=== PATIENT | female | born 1970 | race Caucasian/White ===

== ENCOUNTER 2016-11-24 12:08 | Emergency (ER) | payer BC ==
[~2016-11-24] VITALS: Ht 167.6 cm; Wt 63.5 kg
[~2016-11-24 12:08] MED LIST: FAMO-119 PO; PRD20T PO; TRAM-42 PO
[2016-11-24] MEDS ORDERED: LIDOCAINE PF 1% 5 ML (XYLOCAINE) AMP ONE (13:26)
[2016-11-24] MEDS ORDERED: AMOX-358 PO (13:30)
[2016-11-24] MEDS ORDERED: TRAM-42 PO (13:30)
[2016-11-24] MEDS ORDERED: cefTRIAXone 1 GM (ROCEPHIN) VIAL IM ONE (13:30)
--- NOTE | 2016-11-24 13:30 | ED EENT ---
History of Present Illness General Chief Complaint: Dental Problems/Pain Stated Complaint: R SIDE FACIAL SWELLING Nursing Triage Note: PT REPORTS DENTAL PAIN X 2 DAYS WITH SWELLING SINCE THIS AM. SHE REPORTS SHE IS TO HAVE ALL HER TEETH PULLED TOMORROW. Source: patient Exam Limitations: no limitations History of Present Illness Time seen by provider: 13:27 Initial Comments To ER with right lower jaw pain and swelling since this morning. She states that she is scheduled to have all of her teeth pulled tomorrow and she would like a shot of some long-acting antibiotics because she has no david to fill oral antibiotics. Timing/Duration: abrupt Severity: moderate Location: dental Associated Symptoms: denies symptoms Allergies and Home Medications Allergies Coded Allergies: No Known Drug Allergies (Unverified , 05/27/15) Home Medications Amoxicillin/Potassium Clav 1 Each Tablet, 1 EACH PO BID, #14 Prescribed by: CHASE OLEA on 11/24/16 1330 Famotidine 20 Mg Tablet, 20 MG PO BID, #20 Ref 0 Prescribed by: ASHER HAMM on 11/27/152111 Prednisone 20 Mg Tab, 40 MG PO DAILY, #8 Ref 0 Prescribed by: ASHER HAMM on 11/27/152111 Tramadol HCl 50 Mg Tablet, 50 MG PO Q6H, #10 Prescribed by: CHASE OLEA on 11/24/16 1330 Review of Systems Constitutional: see HPI Eyes: No Symptoms Reported Ears: No Symptoms Reported Nose: no symptoms reported Mouth: see HPI Throat: no symptoms reported Respiratory: no symptoms reported Cardiovascular: no symptoms reported Musculoskeletal: no symptoms reported Past Jlgwwes-Jxloyh-Paytgb Hx Patient Social History Alcohol Use: Denies Use Recreational Drug Use: No Smoking Status: Current Everyday Smoker Type Used: Cigarettes 2nd Hand Smoke Exposure: No Recent Foreign Travel: No Contact w/Someone Who Travel: No Recent Infectious Disease Expo: No Recent Hopitalizations: No Immunizations Up To Date Tetanus Booster (TDap): Less than 5yrs Seasonal Allergies Seasonal Allergies: No Surgeries HX Surgeries: Yes Surgeries: Section, Gallbladder, Tubal Ligation Respiratory Hx Respiratory Disorders: No Cardiovascular Hx Cardiac Disorders: No Neurological Hx Neurological Disorders: No Reproductive System Hx Reproductive Disorders: Yes 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 Genitourinary Hx Genitourinary Disorders: No Gastrointestinal Hx Gastrointestinal Disorders: No Musculoskeletal Hx Musculoskeletal Disorders: No Endocrine Hx Endocrine Disorders: No HEENT HX ENT Disorders: No Cancer Hx Cancer: No Psychosocial Hx Psychiatric Problems: No Integumentary HX Skin/Integumentary Disorder: No Blood Transfusions Hx Blood Disorders: No Adverse Reaction to a Blood Tr: No Family Medical History Significant Family History: No Pertinent Family Hx Physical Exam Vital Signs Vital Sign - Last 12Hours 11/24/16 12:56 Temp 98.2 Pulse 75 Resp 16 B/P (MAP) 148/92 Pulse Ox 99 O2 Delivery Room Air General Appearance: WD/WN, no apparent distress Eyes: bilateral eye EOMI, bilateral eye PERRL, bilateral eye normal inspection Ears: bilateral ear TM normal, bilateral ear auricle normal, bilateral ear canal normal Mouth/Throat: other (there is swelling to the right side of the mandible. There is no fluctuance to the buccal mucosa to suggest drainable abscess.) Neck: non-tender, full range of motion Respiratory: no respiratory distress, no accessory muscle use Gastrointestinal: normal bowel sounds, non tender, soft Neurologic/Psychiatric: alert, normal mood/affect, oriented x 3 Skin: normal color, warm/dry Progress/Results/Core Measures Results/Orders My Orders Orders - CHASE OLEA APRN Ceftriaxone Injection (Rocephin Injectio (11/24/16 13:30) Tramadol Tablet (Ultram Tablet) (11/24/16 13:30) Vital Signs/I&O Vital Sign - Last 12Hours 11/24/16 12:56 Temp 98.2 Pulse 75 Resp 16 B/P (MAP) 148/92 Pulse Ox 99 O2 Delivery Room Air Blood Pressure Mean: 110 Departure Impression Impression: Primary Impression: Dental abscess Disposition: 01 HOME, SELF-CARE Condition: Stable Departure-Patient Inst. Decision time for Depature: 13:29 Referrals: [facility] (PCP/Family) Primary Care Physician Patient Instructions: Tooth Abscess (DC) Add. Discharge Instructions: 1. Follow-up with her dentist tomorrow as scheduled 2. Return to ER for any concerns 3. All discharge instructions reviewed with patient and/or family. Voiced understanding. Scripts Tramadol HCl (Ultram) 50 Mg Tablet 50 MG PO Q6H, #10 TAB Prov: CHASE OLEA APRN 11/24/16 Amoxicillin/Potassium Clav (Augmentin 875-125 Tablet) 1 Each Tablet 1 EACH PO BID, #14 TAB Prov: CHASE OLEA APRN 11/24/16 Images Mouth/Nose 1 - Swelling, Tenderness CHASE OLEA APRN Nov 24, 2016 13:30
[2016-11-24 13:41] VITALS: BP 148/92
--- OUTSIDE RECORDS SUMMARY | 2016-11-25 18:32 | XMS REPORT ---
Author Author ESDRAS PETIT [facility] eClinicalWorks Address Unknown Phone Unavailable Care Team Providers Care Jira Developer Name Role Phone ESDRAS PETIT CP Unavailable Allergies, Adverse Reactions, Alerts Substance Reaction Event Type N.K.D.A. Info Not Available Non Drug Allergy Problems Problem Type Condition Code Onset Dates Condition Status Assessment Upper respiratory tract infection, unspecified type J06.9 Active Problem Need for prophylactic vaccination and inoculation, Influenza V04.81 Active Problem Other and unspecified hyperlipidemia 272.4 Active Problem Abdominal pain, unspecified site 789.00 Active Problem Abnormal weight gain 783.1 Active Problem Other specified symptom associated with female genital organs 625.8 Active Problem Routine gynecological examination V72.31 Active Problem Unspecified breast screening V76.10 Active Problem Mastodynia 611.71 Active Problem Counseling on substance use and abuse V65.42 Active Medications Medication Code System Code Instructions Start Date End Date Status Dosage Azithromycin [facility] [address]-34 250 MG Orally Once a day Mar 17, 2016 Mar 22, 2016 2 tablets on the first day, then 1 tablet daily for 4 days Procedures Procedure Coding System Code Date Office Visit, Est Pt., Level 3 CPT-4 79826 Mar 17, 2016 Vital Signs Date/Time: Mar 17, 2016 Cardiac Monitoring Heart Rate 84 bpm Weight 133.4 lbs Height 66 in BMI 21.53 Index Blood Pressure Diastolic 66 mmHg Blood Pressure Systolic 100 mmHg Results No Known Results Summary Purpose eClinicalWorks Submission
== END 2016-11-24 13:41 | disposition home or self-care (01) ==
LOC: EDUNIT# 12:08 → ER 12:09
DX: K04.7 Periapical abscess without sinus (principal); F17.210 Nicotine dependence, cigarettes, uncomplicated
CPT/HCPCS: 96372; 99282

== ENCOUNTER → 2017-11-18 | Outpatient (CLI) | payer BC ==
[~2017-11-18] MED LIST changes: +AMOX-358 PO
--- NOTE | 2017-11-18 12:53 | Diagnostic Imaging Report ---
INDICATION: Routine screening. COMPARISON: 04/26/2013. TECHNIQUE: 2D and 3D bilateral screening mammography was performed with CAD. FINDINGS: Both breasts remain heterogeneously dense, limiting the sensitivity of mammography. The parenchymal pattern appears stable. No mass or malignant appearing microcalcifications are seen. The axillae are unremarkable. IMPRESSION: No mammographic features suspicious for malignancy are identified. ACR BI-RADS Category 1: Negative. Result letter will be mailed to the patient. Note: At least 10% of breast cancer is not imaged by mammography. Dictated by: Dictated on workstation # [id number]
== END ==
LOC: RAD 07:33
PROVIDERS: ATTEND Nurse Practitioner Primary Care
DX: Z12.31 Encounter for screening mammogram for malignant neoplasm of breast (principal)
CPT/HCPCS: 77067

== ENCOUNTER → 2019-06-04 | Outpatient (CLI) | payer BC ==
--- NOTE | 2019-06-04 16:08 | Diagnostic Imaging Report ---
INDICATION: Routine screening. COMPARISON: Comparison is made with prior mammograms from 11/18/2017 and 04/26/2013. TECHNIQUE: 2-D and 3-D bilateral screening mammography was performed. The current study was also evaluated with a Computer Aided Detection (CAD) system. 3-D tomosynthesis was also performed and reviewed. FINDINGS: Both breasts remain heterogeneously dense, limiting the sensitivity of mammography. No dominant mass or malignant-appearing microcalcifications are seen. Axillae are unremarkable. IMPRESSION: No mammographic features suspicious for malignancy are identified. ACR BI-RADS Category 1: Negative. Result letter will be mailed to the patient. Note: At least 10% of breast cancer is not imaged by mammography. Dictated by: Dictated on workstation # [id number]
== END ==
LOC: RAD 11:32
PROVIDERS: ATTEND Nurse Practitioner Primary Care
DX: Z12.31 Encounter for screening mammogram for malignant neoplasm of breast (principal)
CPT/HCPCS: 77067

== ENCOUNTER 2020-01-10 20:35 | Emergency (ER) | payer SELFPAY ==
[~2020-01-10] VITALS: Ht 167 cm; Wt 63.6 kg
--- NOTE | 2020-01-10 21:28 | ED Lower Extremity ---
General Chief Complaint: Lower Extremity Stated Complaint: R ANKLE PAIN Source: patient Exam Limitations: no limitations (STACEY RAY STUDENT) History of Present Illness Date Seen by Provider: Jan 10, 2020 Time Seen by Provider: 21:10 Initial Comments Jet Garcia is a 49 year old female seen today due to ankle pain. She reports stepping off of a curb and everting her R ankle. She reports hearing a pop. Many years ago she had a similar injury to her R ankle, reports no treatment was needed at that time. She was not able to bear weight initially, but was able to walk into the ED as long as she bore most of her weight on her left leg. Reports pain in her R lateral ankle, with shooting pains when she bears weight along the R ankle and top of her foot. Denies any numbness or tingling. Onset: this afternoon Severity: mild Pain/Injury Location: right ankle Method of Injury: twisted Modifying Factors: Improves With Other (wrapped ankle) (STACEY RAY STUDENT) Allergies and Home Medications Allergies Coded Allergies: No Known Drug Allergies (Unverified , 05/27/15) Home Medications Amoxicillin/Potassium Clav 1 Each Tablet, 1 EACH PO BID Prescribed by: CHASE OLEA on 11/24/16 1330 Famotidine 20 Mg Tablet, 20 MG PO BID Prescribed by: ASHER HAMM on 11/27/152111 Hydrocodone/Acetaminophen 1 Each Tablet, 1 EACH PO Q6H PRN for PAIN-BREAKTHROUGH Prescribed by: TENZIN OJEDA on 01/10/202153 Prednisone 20 Mg Tab, 40 MG PO DAILY Prescribed by: ASHER HAMM on 11/27/152111 Tramadol HCl 50 Mg Tablet, 50 MG PO Q6H Prescribed by: CHASE OLEA on 11/24/16 1330 Patient Home Medication List Home Medication List Reviewed: Yes (TENZIN OJEDA) Review of Systems Constitutional: No chills, No fever EENTM: No throat pain Respiratory: No cough, No short of breath Cardiovascular: No chest pain, No palpitations Gastrointestinal: abdominal pain (attributes to endometriosis); No nausea, No vomiting Genitourinary: No dysuria, No frequency (STACEY RAY STUDENT) Skin: No change in color, No change in hair/nails (TENZIN OJEDA) All Other Systems Reviewed Negative Unless Noted: Yes (TENZIN OJEDA) Past Aznzozt-Cgwgkp-Weqfqr Hx Patient Social History Alcohol Use: Occasionally Uses Recreational Drug Use: No Smoking Status: Current Everyday Smoker (1/2 ppd) Type Used: Cigarettes 2nd Hand Smoke Exposure: No Recent Foreign Travel: No Contact w/Someone Who Travel: No Recent Hopitalizations: No (STACEY RAY STUDENT) Immunizations Up To Date Tetanus Booster (TDap): Less than 5yrs (STACEY RAY) Seasonal Allergies Seasonal Allergies: No (STACEY RAY) Past Medical History Surgeries: Yes Section, Gallbladder, Tubal Ligation Respiratory: No Cardiac: No Neurological: No Reproductive Disorders: Yes [employer]BER [employer]GR[employer] History: Tubal Ligation Gastrointestinal: No Musculoskeletal: No Endocrine: No Cancer: No Psychosocial: No Integumentary: No Blood Disorders: No Adverse Reaction/Blood Tranf: No (STACEY RAY STUDENT) Family Medical History No Pertinent Family Hx (STACEY RAY) Physical Exam Vital Signs Vital Signs - First Documented 01/10/20 21:02 Temp 36.8 Pulse 71 Resp 18 B/P (MAP) 100/71 (81) Pulse Ox 98 O2 Delivery Room Air (TENZIN OJEDA) Vital Signs Capillary Refill : (STACEY RAY STUDENT) Height, Weight, BMI Height: 5'6" Weight: 140lbs. oz. 63.209782kp; 22.27 BMI Method:Stated General Appearance: WD/WN, no apparent distress Neck: non-tender, full range of motion, supple, normal inspection Cardiovascular: normal peripheral pulses, regular rate, rhythm, no edema, no JVD, no murmur Respiratory: lungs clear, normal breath sounds, no respiratory distress, no accessory muscle use Ankles: right ankle limited range of motion, right ankle pain (lateral malleolus), right ankle swelling (lateral malleolus) Feet: right foot non-tender, right foot no evidence of injury Neurologic/Tendon: normal sensation, responds to pain Neurologic/Psychiatric: alert, normal mood/affect, oriented x 3 Skin: normal color, warm/dry (STACEY RAY STUDENT) Cardiovascular: normal peripheral pulses (right dorsal pedal pulse 2+ out of 4. Symmetric to left) (TENZIN OJEDA) Progress/Results/Core Measures Results/Orders My Orders Orders - TENZIN OJEDA Ankle, Right, 3 Views (01/10/20 21:23) Rx-Hydrocodone/Apap 5-325 Mg (Rx-Vicodin (01/10/20 21:45) (TENZIN OJEDA) Vital Signs/I&O 01/10/20 01/10/20 21:02 22:02 Temp 36.8 36.8 Pulse 71 68 Resp 18 18 B/P (MAP) 100/71 (81) 110/81 (81) Pulse Ox 98 98 O2 Delivery Room Air Room Air (TENZIN OJEDA) Progress Progress Note : Progress Note [place] ankle rules cannot rule out fracture, no evidence of injury to navicular or fifth metatarsal, ordered ankle X-ray, which revealed a distal fibula fracture. Recommend R ankle boot and crutches, as well as RICE and NSAIDs as needed. (STACEY RAY MED STUDENT) Progress Note : Progress Note Put her in a boot and give her some crutches with and follow-up with Dr. Guajardo. Rice therapy. Take-home pack of hydrocodone. I attest that I saw this patient alongside the medical student and agree with his documented history, physical exam and review of systems except as otherwise noted. (TENZIN OJEDA) Diagnostic Imaging Diagonstic Imaging: Xray Plain Films/CT/US/NM/MRI: ankle (right) Comments [facility], [place] NAME: JET GARCIA [facility] REC#: [id number] PT STATUS: DEP ER : 1970 PHYSICIAN: TENZIN OJEDA MD ADMIT DATE: 01/10/20/ER Draft Date of Exam:01/10/20 ANKLE, RIGHT, 3 VIEWS INDICATION: Right ankle injury COMPARISON: None. FINDINGS: Three views of the right ankle demonstrate a nondisplaced transverse fracture at the tip of the fibula. The ankle mortise, medial malleolus and visualized tarsal bones are unremarkable IMPRESSION: Distal fibula fracture. Dictated on workstation # [id number] Dict: 01/10/20 2148 Trans: 01/10/203 [facility] [id number] Interpreted by: JULIO C WILSON Electronically signed by: Reviewed: Reviewed by Me (TENZIN OJEDA) Departure Impression Primary Impression: Closed fibular fracture Qualified Codes: S82.831A - Other fracture of upper and lower end of right fibula, initial encounter for closed fracture Disposition: HOME, SELF-CARE Condition: Stable Departure-Patient Inst. Decision time for Depature: 21:54 (TENZIN OJEDA) Referrals: TRACE SALAS APRN (PCP) Primary Care Physician ELVER GUAJARDO MD Patient Instructions: Fibula Fracture (DC) Add. Discharge Instructions: Please wear your boot and use crutches to keep your right ankle stable and to decrease the amount of weight. You can take off the boot to shower and sleep, but wear TERRI bandage for compression. Follow up with orthopedic surgery. Dr. Guajardo, in 1 week. Ibuprofen maximum 800 mg every 8 hours, Tylenol 650 mg every 8 hours. Hydrocodone for breakthrough pain, 1 tablet every 6 hours. Rest, ice, compression with TERRI bandage, and elevate above the level of your heart when possible. For the first 2-3 days use ice 20 minutes on every 2 hours while awake. All discharge instructions reviewed with patient and/or family. Voiced understanding. Scripts Hydrocodone/Acetaminophen (Hydrocodone-Acetamin 5-325 mg) 1 Each Tablet 1 EACH PO Q6H PRN for PAIN-BREAKTHROUGH, #12 TAB 0 Refills Prov: TENZIN OJEDA 01/10/20 Work/School Note: Work Release Form Date Seen in the Emergency Department: Jan 10, 2020 Return to Work: Jan 11, 2020 Restrictions: Need Release from Doctor Other Restrictions Listed Below: Weightbearing as tolerated using crutches and boot until 01/17/20. Copy Copies To 1: ELVER GUAJARDO MD, EVAN MED STUDENT Jan 10, 2020 21:27 TENZIN OJEDA Jan 10, 2020 21:56
[2020-01-10] MEDS ORDERED: RX-HYDROCODONE/APAP 5/325 MG #4 TAB PK PO PRN (21:45)
[2020-01-10] MEDS ORDERED: HYDR-3812 PO (21:54)
[2020-01-10 22:02] VITALS: BP 110/81
--- NOTE | 2020-01-10 22:07 | Diagnostic Imaging Report ---
INDICATION: Right ankle injury COMPARISON: None. FINDINGS: Three views of the right ankle demonstrate a nondisplaced transverse fracture at the tip of the fibula. The ankle mortise, medial malleolus and visualized tarsal bones are unremarkable IMPRESSION: Distal fibula fracture. Dictated by: Dictated on workstation # [id number]
== END 2020-01-10 22:06 | disposition home or self-care (01) ==
LOC: EDUNIT# 20:35 → ER 20:36
DX: S82.831A Other fracture of upper and lower end of right fibula, initial encounter for closed fracture (principal); F17.210 Nicotine dependence, cigarettes, uncomplicated; Z79.52 Long term (current) use of systemic steroids; X50.1XXA Overexertion from prolonged static or awkward postures, initial encounter
CPT/HCPCS: 73610

== ENCOUNTER → 2022-02-05 | Outpatient (CLI) | payer OTHER ==
[~2022-02-05] MED LIST changes: +ACHD5005 PO
--- NOTE | 2022-02-05 13:46 | Diagnostic Imaging Report ---
PROCEDURE: MR imaging cervical spine without contrast. TECHNIQUE: Multiplanar, multisequence MR imaging of the cervical spine was performed without contrast. INDICATION: Chronic neck and right arm pain EXAMINATION: Cervical spine MRI without contrast 02/05/2022. FINDINGS: There is normal height and alignment of the vertebral bodies. There are no compression deformities. The visualized cervical medullary junction is unremarkable. Cord signal appears preserved. C2-C3: Unremarkable. C3-C4: Unremarkable. C4-C5: Unremarkable. C5-C6: There is a right paracentral spur disc complex. There is secondary mild central stenosis with moderate narrowing of the right neural foramen. There is mild narrowing of the left neural foramen. C6-C7: There is disc desiccation with a mild broad-based spur disc complex. There is a central annular tear. Findings cause mild central narrowing. The neural foramina appear patent. C7-T1: Unremarkable. The prevertebral soft tissues appear normal. IMPRESSION: 1. Mild multilevel degenerative findings predominantly involving the C5-C6 and C6-C7 levels as noted above. 2. Not mentioned in the body the report there is a nonspecific area of T2 hyperintensity left paracentrally overlying the anterior border of the T3 and T4 vertebral bodies. This is partially imaged and it could represent an anomalous vessel. Other cystic collections not excluded and CT imaging of the chest with contrast could help further characterize this finding. Dictated by: Dictated on workstation # [id number]
== END ==
LOC: RAD 08:21
PROVIDERS: ATTEND Nurse Practitioner
DX: M50.323 Other cervical disc degeneration at C6-C7 level (principal); M48.02 Spinal stenosis, cervical region; M46.02 Spinal enthesopathy, cervical region
CPT/HCPCS: 72141

== ENCOUNTER → 2022-04-22 | Outpatient (CLI) | payer OTHER ==
[~2022-04-22] MED LIST changes: +GADOTERATE 0.5 MMOL/ML (CLARISCAN) 15 ML VIAL IV ONE
--- NOTE | 2022-04-22 18:36 | Diagnostic Imaging Report ---
INDICATION: Thoracic back pain Thoracic spinal curvature and alignment are unremarkable. Vertebral body heights and disc spaces are maintained. Thoracic spinal cord signal intensities are unremarkable. There is no abnormal contrast enhancement. There is no evidence of paraspinous abnormality apart from an approximately 1.4 x 1.0 cm cyst to the left of T4 vertebral body. 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 Otherwise, no thoracic spinal abnormality is identified. Dictated by: Dictated on workstation # [id number]
== END ==
LOC: RAD 04-12 14:10
PROVIDERS: ATTEND Neurological Surgery
DX: M71.38 Other bursal cyst, other site (principal)
CPT/HCPCS: 72157

== ENCOUNTER 2022-11-21 18:57 | Emergency (ER) | payer OTHER ==
[~2022-11-21] VITALS: Ht 167.7 cm; Wt 75.8 kg
[~2022-11-21 18:57] MED LIST changes: -GADOTERATE 0.5 MMOL/ML (CLARISCAN) 15 ML VIAL IV ONE
--- NOTE | 2022-11-21 19:51 | ED Neurological Problem ---
General Chief Complaint: Neuro-Stroke Like Symptoms Stated Complaint: DROOPING FACE/SLURRED SPEECH Nursing Triage Note: REPORTS NOT FEELING RIGHT FRIDAY11/17/22, REPORTS HEADACHE, LEFT SIDED FACIAL DROOP SINCE Friday11/18/22. SENT HERE FROM [facility]. Source: patient, family History of Present Illness Date Seen by Provider: Nov 21, 2022 Time Seen by Provider: 19:34 Initial Comments Patient is a 52-year-old female who presents to the emergency department with a chief complaint of just "not feeling right". She states symptoms started on Friday. She felt like she had some facial droop. She started developing a headache. She tells me that she had some slurred speech. She states that symptoms persisted into Friday. She discussed it with her and thought that she should probably follow-up with her primary care physician. She call Dr. Barahona's office on Friday. She was advised to come to the emergency department. As her symptoms were improving just a little bit she decided to wait and went to [facility] urgent care today. She was sent from there to the emergency department. She states that the speech difficulties have improved. She continues to feel generalized malaise and fatigue. She cannot pinpoint any other symptoms. She does endorse a little blurry vision left lateral gaze. No double vision. She complains of severe bitemporal headache, she is taken 1 dose of Tylenol without any relief. She denies nausea, chest pain, shortness of breath. No abdominal pain or GI symptoms. She does have chronic abdominal issues no different than her usual. She denies unilateral n umbness weakness or tingling currently. No balance or coordination issues. She does not take any daily medications. She is a former smoker and recently restarted vaping about a month ago. 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 No family history of early cardiovascular disease or stroke. Initial vital signs are completely normal. NIH at presentation is 0. Timing/Duration: 1 week Severity: moderate Associated Symptoms: confusion ("fuzzy headed"), slurred speech, vision changes Allergies and Home Medications Allergies Coded Allergies: No Known Drug Allergies (Unverified , 05/27/15) Patient Home Medication List Home Medication List Reviewed: Yes Discontinued Medications Amoxicillin/Potassium Clav (Augmentin 875-125 Tablet) 1 Each Tablet, 1 EACH PO BID Discontinued Reason: No Longer Taking Prescribed by: CHASE OLEA on 11/24/161329 Last Action: Discontinued Famotidine (Pepcid) 20 Mg Tablet, 20 MG PO BID Discontinued Reason: No Longer Taking Prescribed by: ASHER HAMM on 11/27/152111 Last Action: Discontinued Hydrocodone/Acetaminophen (Hydrocodone-Acetamin 5-325 mg) 1 Each Tablet, 1 EACH PO Q6H PRN for PAIN-BREAKTHROUGH Discontinued Reason: No Longer Taking Prescribed by: TENZIN OJEDA on 01/10/202153 Last Action: Discontinued Prednisone (Prednisone) 20 Mg Tab, 40 MG PO DAILY Discontinued Reason: No Longer Taking Prescribed by: ASHER HAMM on 11/27/152111 Last Action: Discontinued Tramadol HCl (Ultram) 50 Mg Tablet, 50 MG PO Q6H Discontinued Reason: No Longer Taking Prescribed by: CHASE OLEA on 11/24/161329 Last Action: Discontinued Review of Systems Review of Systems Constitutional: see HPI Eyes: Blurred Vision (lateral aspec t of left eye) Ears, Nose, Mouth, Throat: no symptoms reported Respiratory: no symptoms reported Cardiovascular: no symptoms reported Gastrointestinal: no symptoms reported Genitourinary: no symptoms reported Musculoskeletal: no symptoms reported Skin: no symptoms reported Psychiatric/Neurological: Cognitive Dysfunction (feels "fuzzy" and fatigued, "just not right") All Other Systems Reviewed Negative Unless Noted: Yes Past Bjnnjpb-Xiachx-Youqyb Hx Patient Social History Tobacco Use?: Yes Substance use?: No Alcohol Use?: No Pt feels they are or have been: No Immunizations Up To Date Tetanus Booster (TDap): Less than 5yrs First/Initial COVID19 Vaccinat: X3 Seasonal Allergies Seasonal Allergies: No Past Medical History Surgery/Hospitalization HX: , TUBAL, CHOLECYSTECTOMY Surgeries: Yes Section, Gallbladder, Tubal Ligation Respiratory: No Cardiac: No Neurological: No Reproductive Disorders: Yes 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 oz. 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, no motor/sensory deficits, alert, normal mood/affect, oriented x 3 Crainal Nerves: normal hearing, normal speech, PERRL; No facial droop, No facial paresthesias, No facial weakness, No tongue deviation to R, No tongue deviation to L Coordination/Gait: normal finger to nose, negative Romberg's sign Motor/Sensory: no motor deficit, no sensory deficit, no pronator drift Skin: normal color, warm/dry Stroke Onset of Symptoms Date of Onset of Symptoms: Nov 17, 2022 NIH Stroke Scale Assessment Select: Initial Level of Consciousness: 0=Alert (0), Level of Consciousness-Questions: 0=Answers both month/age (0), LOC Commands: 0=Performs both tasks (0), Gaze: Normal (0), Visual Brantley: 0=No visual loss (0), Facial Movement (Facial Paresis): 0=Normal symmetrical mnt (0), Motor Function-Arms Right: 0=No drift (0), Motor Function-Arms Left: 0=No drift (0), Motor Function-Legs Right: 0=No drift (0), Motor Function-Legs Left: 0=No drift (0), Limb Ataxia: 0=Absent (0), Sensory: 0=Normal:no loss (0), Best Language: 0=No aphasia (0), Dysarthria: 0=Normal (0), Extinction & [place] ttention: 0=No abnormality (0), Total: 0 Stroke Thrombolytic Exclusion Age 18 or Over: Yes Progress/Results/Core Measures Results/Orders Lab Results Laboratory Tests Test 11/21/22 20:00 Range/Units White Blood Count 5.9 4.3-11.0 10^3/uL Red Blood Count 4.10 3.80-5.11 10^6/uL Hemoglobin 13.1 11.5-16.0 g/dL Hematocrit 38 35-52 % Mean Corpuscular Volume 93 80-99 fL Mean Corpuscular Hemoglobin 32 25-34 pg Mean Corpuscular Hemoglobin Concent 34 32-36 g/dL Red Cell Distribution Width 12.0 10.0-14.5 % Platelet Count 235 130-400 10^3/uL Mean Platelet Volume 10.1 9.0-12.2 fL Immature Granulocyte % (Auto) 0 % Neutrophils (%) (Auto) 59 42-75 % Lymphocytes (%) (Auto) 32 12-44 % Monocytes (%) (Auto) 6 0-12 % Eosinophils (%) (Auto) 3 0-10 % Basophils (%) (Auto) 0 0-10 % Neutrophils # (Auto) 3.5 1.8-7.8 10^3/uL Lymphocytes # (Auto) 1.9 1.0-4.0 10^3/uL Monocytes # (Auto) 0.3 0.0-1.0 10^3/uL Eosinophils # (Auto) 0.2 0.0-0.3 10^3/uL Basophils # (Auto) 0.0 0.0-0.1 10^3/uL Immature Granulocyte # (Auto) 0.0 0.0-0.1 10^3/uL Sodium Level 141 135-145 MMOL/L Potassium Level 3.7 3.6-5.0 MMOL/L Chloride Level 108 H 98-107 MMOL/L Carbon Dioxide Level 25 21-32 MMOL/L Anion Gap 8 5-14 MMOL/L Blood Urea Nitrogen 16 7-18 MG/DL Creatinine 0.91 0.60-1.30 MG/DL Estimat Glomerular Filtration Rate 77 BUN/Creatinine Ratio 18 Glucose Level 92 70-105 MG/DL Calcium Level 9.1 8.5-10.1 MG/DL Corrected Calcium 9.3 8.5-10.1 MG/DL Total Bilirubin 0.5 0.1-1.0 MG/DL Aspartate Amino Transf (AST/SGOT) 32 5-34 U/L Alanine Aminotransferase (ALT/SGPT) 30 0-55 U/L Alkaline Phosphatase 114 40-136 U/L Total Protein 6.5 6.4-8.2 GM/DL Albumin 3.8 3.2-4.5 GM/DL Thyroid Stimulating Hormone (TSH) 1.75 0.35-4.94 UIU/ML My Orders Orders - CHANDRA DIETZ MD Ed Iv/Invasive Line Start (11/21/22 19:49) Cbc With Automated Diff (11/21/22 19:49) Comprehensive Metabolic Panel (11/21/22 19:49) Ekg Tracing (11/21/22 19:49) Ct Head Wo (11/21/22 19:49) Ct Angio Head/Neck (11/21/22 19:49) Thyroid Stimulating Hormone (11/21/22 19:49) Iohexol Injection (Omnipaque 350 Mg/Ml 1 (11/21/22 20:45) Received Contrast (Hold Metformin- Contr (11/21/22 20:45) Ns (Ivpb) (Sodium Chloride 0.9% Ivpb Bag (11/21/22 20:45) Ketorolac Injection (Toradol Injection) (11/21/22 21:00) Ns Iv 1000 Ml (Sodium Chloride 0.9%) (11/21/22 20:59) Medications Given in ED Current Medications Medications Dose Ordered Sig/Sofya Route Start Time Stop Time Status Last Admin Dose Admin Iohexol 75 ml ONCE ONCE IV 11/21/22 20:45 11/21/22 21:07 DC 11/21/22 20:46 75 ML Ketorolac Tromethamine 15 mg ONCE ONCE IVP 11/21/22 21:00 11/21/22 21:01 DC 11/21/22 21:05 15 MG Sodium Chloride 100 ml ONCE ONCE IV 11/21/22 20:45 11/21/22 21:07 DC 11/21/22 20:46 100 ML Vital Signs/I&O 11/21/22 19:09 Temp 36.0 Pulse 76 Resp 16 B/P (MAP) 141/86 (104) Pulse Ox 98 O2 Delivery Room Air Blood Pressure Mean: 104 Progress Progress Note : Time: 22:18 Progress Note Patient seen and evaluated by me. Evaluation today includes physical exam, CBC, comprehensive metabolic panel, TSH, EKG, CT head noncontrast and CT angio head and neck. Pertinent physical exam findings well-developed well-nourished 52-year-old female with completely stable vitals. No increased work of breathing or respiratory distress. Clear lungs. Regular heart rate, soft abdomen nontender. Neurologic exam completely within normal limits. No pronator drift normal strength and sensation, normal finger-nose, normal gait. Cranial nerves intact. Patient does appear fatigued. Differential diagnosis based on history and physical exam TIA, electrolyte/metabolic derangement, hypothyroidism, dehydration. Labs and EKG independently reviewed and interpreted by me. Her CBC is completely normal, comprehensive metabolic panel normal. TSH is within normal limits. EKG NSR without ectopy or ST segment change. Noncontrast read by radiology as normal, CT angio head and neck read by radiology normal. Patient is treated in the emergency department with Toradol, IV fluids. She had near complete relief of her headache. Vital signs remained stable. No deterioration in her condition during her stay in the emergency department. Reassurance is provided to both the patient and her who is present at the bedside. No clinical or objective findings to warrant further studies from the emergency department or admission. Patient is advised to follow-up with Dr. Barahona, her primary care physician next week. Return precautions given both verbal and written format. All questions were sought and answered. Patient is improved at discharge. Initial ECG Impression Date: Nov 21, 2022 Initial ECG Impression Time: 20:00 Initial ECG Rhythm: S.Shahab Initial ECG Intervals: Normal Initial ECG Impression: Normal Diagnostic Imaging Diagonstic Imaging: CT Comments [facility], [place] NAME: JET GARCIA [facility] REC#: [id number] PT STATUS: REG ER : 1970 PHYSICIAN: CHANDRA DIETZ MD ADMIT DATE: 11/21/22/ER Draft Date of Exam:11/21/22 CT HEAD WO PROCEDURE: CT head without contrast. TECHNIQUE: Multiple contiguous axial images were obtained through the brain without the use of intravenous contrast. Auto Exposure Controls were utilized during the CT exam to meet ALARA standards for radiation dose reduction. INDICATION: 52-year-old female, not feeling right for several days, headache, left-sided facial droop. CORRELATION STUDY: None. FINDINGS: Ventricles and sulci are unremarkable. There are no abnormal areas of decreased attenuation to suggest edema. There is no appreciable midline shift or mass effect. No intracranial hemorrhage. There is noted what appears to be slight cerebellar ectopia with a fullness of the cerebellar tonsils at the foramen. Bony calvarium unremarkable. Paranasal sinuses and mastoid air cells clear. IMPRESSION: 1. Negative for acute intracranial abnormality. 2. Suggested soft tissue fullness with cerebellar ectopia at the foramen suggesting an Chiari malformation. Consideration for nonemergent follow-up MRI would be recommended. Dictated on workstation # [id number] Dict: 11/21/222023 Trans: 11/21/222039 [facility] [id number] Interpreted by: MARÍA OSULLIVAN DO Electronically signed by: [facility]: CT Comments NAME: JET GARCIA [facility] REC#: [id number] PT STATUS: REG ER : 1970 PHYSICIAN: CHANDRA DIETZ MD ADMIT DATE: 11/21/22/ER Draft Date of Exam:11/21/22 CT ANGIO HEAD/NECK PROCEDURE: CT angiography of the head and CT angiography of the neck with and without contrast. TECHNIQUE: Contiguous noncontrast images were obtained from the skull base through the vertex. After intravenous contrast administration, helical CT angiography of the neck was performed. Source data was reformatted into 3D MIP projections. Delayed post contrast acquisition was also obtained. Auto Exposure Controls were utilized during the CT exam to meet ALARA standards for radiation dose reduction. INDICATION: 52-year-old female, not feeling right. Several days. Headache. Left-sided facial droop. COMPARISON: CT head same day FINDINGS: PRECONTRAST HEAD: CTA NECK: Aorta: Aortic arch is limited in evaluation with artifact present. Does appear relatively normal, with standard three vessel branching pattern. Right Common/Internal/External Carotid Artery: Patent and without significant stenosis. Left Common/Internal/External Carotid Artery: Patent and without significant stenosis. Vertebral arteries: Slightly dominant left vertebral artery. Both vertebral arteries appearing patent. No significant stenosis. Non-vascular: Lung apices unremarkable. Mild cervical spondylosis. CTA HEAD: Anterior Circulation: The intracranial internal carotid arteries are patent. The bilateral middle cerebral arteries are patent and without stenosis. The anterior cerebral arteries are patent and without stenosis. Posterior Circulation: The bilateral intracranial segments of the vertebral arteries are patent. The basilar artery is patent and without stenosis. The posterior cerebral arteries are patent. POST CONTRAST HEAD: Dural venous system with normal enhancement. No concerning enhancement on delayed post-contrast imaging. IMPRESSION: 1. Negative CTA of the head. 2. Negative CTA of the neck. Dictated on workstation # [id number] Dict: 11/21/222113 Trans: 11/21/222213 DO [id number] Interpreted by: MARÍA OSULLIVAN DO Electronically signed by: Departure Impression Primary Impression: Migraine Qualified Codes: G43.009 - Migraine without aura, not intractable, without status migrainosus Additional Impression: Fatigue Qualified Codes: R53.83 - Other fatigue Disposition: 01 HOME, SELF-CARE Condition: Improved Departure-Patient Inst. Decision time for Depature: 22:18 Referrals: COLTON BARAHONA DO Patient Instructions: Fatigue Add. Discharge Instructions: Drink plenty of fluids to stay well-hydrated. Take a good yhfo-xar-wagffwv multivitamin/B complex daily. Try and get good sleep and have good nutrition. Please call Dr. Barahona's office tomorrow for a follow-up appointment next week. If you have any return of severe headache especially with facial droop or one- sided weakness or numbness please return to the emergency department for reevaluation. You can take [id number] extra strength Excedrin 2 tablets every 6 hours or 3 ibuprofen tablets with food every 6 hours for headache. If you are taking ibuprofen you should be on a daily acid operations inspector such as generic Prilosec. Copy Copies To 1: COLTON BARAHONA KATHRYN M MD Nov 21, 2022 19:51
[2022-11-21 20:10] LABS: BASOPHILS % (AUTO) 0 % (0-10); EOSINOPHILS # (AUTO) 0.2 10^3/uL (0.0-0.3); EOSINOPHILS % (AUTO) 3 % (0-10); HEMATOCRIT 38 % (35-52); HEMOGLOBIN 13.1 g/dL (11.5-16.0); LYMPHOCYTES # (AUTO) 1.9 10^3/uL (1.0-4.0); LYMPHOCYTES % (AUTO) 32 % (12-44); MEAN CORPUSCULAR HEMOGLOBIN 32 pg (25-34); MEAN CORPUSCULAR HGB CONC 34 g/dL (32-36); MEAN CORPUSCULAR VOLUME 93 fL (80-99); MEAN PLATELET VOLUME 10.1 fL (9.0-12.2); MONOCYTES # (AUTO) 0.3 10^3/uL (0.0-1.0); MONOCYTES % (AUTO) 6 % (0-12); NEUTROPHILS # (AUTO) 3.5 10^3/uL (1.8-7.8); NEUTROPHILS % (AUTO) 59 % (42-75); PLATELET COUNT 235 10^3/uL (130-400); WHITE BLOOD COUNT 5.9 10^3/uL (4.3-11.0)
[2022-11-21 20:32] LABS: ALBUMIN 3.8 GM/DL (3.2-4.5); BILIRUBIN,TOTAL 0.5 MG/DL (0.1-1.0); CALCIUM 9.1 MG/DL (8.5-10.1); CREATININE SERUM 0.91 MG/DL (0.60-1.30); POTASSIUM 3.7 MMOL/L (3.6-5.0); TOTAL PROTEIN 6.5 GM/DL (6.4-8.2)
--- NOTE | 2022-11-21 20:41 | Diagnostic Imaging Report ---
PROCEDURE: CT head without contrast. TECHNIQUE: Multiple contiguous axial images were obtained through the brain without the use of intravenous contrast. Auto Exposure Controls were utilized during the CT exam to meet ALARA standards for radiation dose reduction. INDICATION: 52-year-old female, not feeling right for several days, headache, left-sided facial droop. CORRELATION STUDY: None. FINDINGS: Ventricles and sulci are unremarkable. There are no abnormal areas of decreased attenuation to suggest edema. There is no appreciable midline shift or mass effect. No intracranial hemorrhage. There is noted what appears to be slight cerebellar ectopia with a fullness of the cerebellar tonsils at the foramen. Bony calvarium unremarkable. Paranasal sinuses and mastoid air cells clear. IMPRESSION: 1. Negative for acute intracranial abnormality. 2. Suggested soft tissue fullness with cerebellar ectopia at the foramen suggesting an Chiari malformation. Consideration for nonemergent follow-up MRI would be recommended. Dictated by: Dictated on workstation # [id number]
[2022-11-21] MEDS ORDERED: NS 100 ML (IVPB) BAG IV ONE (20:45)
[2022-11-21] MEDS ORDERED: IOHEXOL 350 MG/ML 100 ML (OMNIPAQUE 350) VIAL IV ONE (20:45)
[2022-11-21] MEDS ORDERED: HOLD METFORMIN - RECEIVED CONTRAST 20 ML VIAL IV SCH (20:45)
[2022-11-21] MEDS ORDERED: NS IV 1000 ML 1,000 ML IV STA (20:59)
[2022-11-21] MEDS ORDERED: KETOROLAC 15 MG/ML VIAL IVP ONE (21:00)
--- NOTE | 2022-11-21 22:14 | Diagnostic Imaging Report ---
PROCEDURE: CT angiography of the head and CT angiography of the neck with and without contrast. TECHNIQUE: Contiguous noncontrast images were obtained from the skull base through the vertex. After intravenous contrast administration, helical CT angiography of the neck was performed. Source data was reformatted into 3D MIP projections. Delayed post contrast acquisition was also obtained. Auto Exposure Controls were utilized during the CT exam to meet ALARA standards for radiation dose reduction. INDICATION: 52-year-old female, not feeling right. Several days. Headache. Left-sided facial droop. COMPARISON: CT head same day FINDINGS: CTA NECK: Aorta: Aortic arch is limited in evaluation with artifact present. Does appear relatively normal, with standard three vessel branching pattern. Right Common/Internal/External Carotid Artery: Patent and without significant stenosis. Left Common/Internal/External Carotid Artery: Patent and without significant stenosis. Vertebral arteries: Slightly dominant left vertebral artery. Both vertebral arteries appearing patent. No significant stenosis. Non-vascular: Lung apices unremarkable. Mild cervical spondylosis. CTA HEAD: Anterior Circulation: The intracranial internal carotid arteries are patent. The bilateral middle cerebral arteries are patent and without stenosis. The anterior cerebral arteries are patent and without stenosis. Posterior Circulation: The bilateral intracranial segments of the vertebral arteries are patent. The basilar artery is patent and without stenosis. The posterior cerebral arteries are patent. POST CONTRAST HEAD: Dural venous system with normal enhancement. No concerning enhancement on delayed post-contrast imaging. IMPRESSION: 1. Negative CTA of the head. 2. Negative CTA of the neck. Dictated by: Dictated on workstation # [id number]
[2022-11-21 22:23] VITALS: BP 130/79
== END 2022-11-21 22:25 | disposition home or self-care (01) ==
LOC: EDUNIT# 18:57 → ER 19:00
DX: G43.909 Migraine, unspecified, not intractable, without status migrainosus (principal); R53.83 Other fatigue; Z28.311 Partially vaccinated for COVID-19
CPT/HCPCS: 36415; 70450; 70496; 70498; 80053; 84443; 85025; 93005

== ENCOUNTER → 2023-04-09 | Outpatient (CLI) | payer OTHER ==
--- NOTE | 2023-04-09 17:24 | Diagnostic Imaging Report ---
EXAMINATION: Pelvic radiograph and left hip radiograph. TECHNIQUE: AP view of the pelvis and AP and crosstable views of the left hip obtained. HISTORY: L HIP PAIN COMPARISON: None available. FINDINGS: . Alignment is normal. No fracture is seen. Joint spaces are normal. IMPRESSION: 1. No fracture. Dictated by: Dictated on workstation # [id number]
== END ==
LOC: RAD 10:22
PROVIDERS: ATTEND Internal Medicine
DX: M25.552 Pain in left hip (principal)